=== PATIENT | female | born 1960 | race Caucasian/White ===

== ENCOUNTER 2018-04-22 18:43 | Emergency (ER) | payer OTHER ==
[~2018-04-22] VITALS: Ht 162.6 cm; Wt 79.0 kg
[~2018-04-22 18:43] MED LIST: AMLO-147; BECL8.7A INH; HYDR-3672 PO; HYDR25TA6 PO; LIPITOR PO; LOSARTAN PO; NITR0.4T39 SL
[2018-04-22 18:47] VITALS: BP 147/73; PULSE 78; RESP 18; Ht 162.6 cm; Wt 79.0 kg
[2018-04-22] MEDS ORDERED: ALBUTEROL 0.083% (NEB) 2.5 MG/3 ML AMP HHN STA (21:58)
--- NOTE | 2018-04-22 21:58 | ERD ---
ER Documentation Chief Complaint Chief Complaint cough/body aches/fever x 5 days HPI This is a 58-year-old female who presents emergency department with complaints of cough, chest congestion, chest discomfort for more than 5 days. Stated that she is also asthmatic but her inhaler is not working. Denies headache, dizziness, neck pain, neck stiffness, difficulty fungal difficult breathing lying flat, shoulder pain, abdominal pain, nausea, vomiting, constipation, diarrhea, urinary symptoms, loss of bowel bladder control, trauma, injury, falls, recent travel, recent long travel, recent exposure to any illness, recent antibiotic use in the last 3 months, fever, chills, seizures, numbness or tingling vision, trouble walking, recent major surgery in the last 3 weeks. Past medical history: Hypertension, asthma. Surgical history: Denies. Medication: Unable to obtain. Denies smoking, use of alcoholic beverages, use of illegal drugs. ROS All systems reviewed and are negative except as per history of present illness. Medications Home Meds Active Scripts Acetaminophen* (Tylophen*) 500 Mg Capsule, 1 CAP PO Q6H PRN for PAIN AND OR ELEVATED TEMP, #20 CAP Prov:JSO VELASCO 04/22/18 Benzonatate* (Tessalon Perle*) 100 Mg Capsule, 100 MG PO Q8H PRN for COUGH, #15 CAP Prov:JOS VELASCO 04/22/18 Albuterol Sulfate* (Ventolin HFA*) 18 Gm Hfa.aer.ad, 2 PUFF INHALATION Q4H PRN for WHEEZING, #1 INHALER Prov:JOS VELASCO 04/22/18 Prednisone* (Prednisone*) 20 Mg Tab, 40 MG PO DAILY for 4 Days, TAB Prov:JOS VELASCO 04/22/18 Azithromycin* (Zithromax*) 250 Mg Tablet, 250 MG PO .SophiaPACK DIRECTED, #6 TAB TAKE 500 MG (2 TABS) THE FIRST DAY THEN 250 MG (1 TAB) DAYS 2-5 Prov:JOS VELASCO 04/22/18 Oseltamivir Phosphate* (Tamiflu*) 75 Mg Capsule, 75 MG PO BID for 5 Days, CAP Prov:JOS VELASCO 04/22/18 Reported Medications Beclomethasone Dip* (Qvar 40*) 7.3 Gm Inha, 1 PUFF INH BID, INH 12/01/13 [Losartan] No Conflict Check, 100 MG PO DAILY 12/01/13 Hydrochlorothiazide (Hydrochlorothiazide) 25 Mg Tablet, 25 MG PO DAILY, TAB 12/01/13 Nitroglycerin* (Nitrostat*) 0.4 Mg Tab.subl, 0.4 MG SL Q5MIN PRN for CHEST PAIN, BOTTLE 12/01/13 Hydralazine Hcl* (Hydralazine Hcl*) 50 Mg Tab, 50 MG PO DAILY, TAB 12/01/13 [Lipitor] No Conflict Check, PO 12/01/13 Amlodipine Besylate* (Amlodipine Besylate*) 10 Mg Tablet 12/14/12 Allergies Allergies: Coded Allergies: No Known Allergy (Unverified , 12/14/12) PMhx/Soc Medical and Surgical Hx: pt denies Medical Hx, pt denies Surgical Hx History of Surgery: No Anesthesia Reaction: No Hx Neurological Disorder: No Hx Respiratory Disorders: No Hx Cardiac Disorders: No Hx Psychiatric Problems: No Hx Miscellaneous Medical Probl: No Hx Alcohol Use: No Hx Substance Use: No Hx Tobacco Use: No Smoking Status: Never smoker Physical Exam Vitals Physical Exam Const: No acute distress Head: Atraumatic Eyes: Normal Conjunctiva ENT: Normal External Ears, Nose and Mouth. Bilateral ears: TMs are not erythematous. No bleeding. No discharge with no hearing loss. Nose: Midline. There is no frontal or maxillary sinus tenderness to palpation. Throat: Uvula is midline nondisplaced. Tonsils are +1 bilaterally without redness without exudates. Tolerating secretions. Patent airway. Speaks full and clear sentences. No tripoding. Neck: Full range of motion. No meningismus. No nuchal rigidity. No signs of irritation. Resp: Clear to auscultation bilaterally. Cardio: Regular rate and rhythm, no murmurs Abd: Soft, non tender, non distended. Normal bowel sounds Skin: No petechiae or rashes. No vesicular lesion to chest area. Back: No midline or flank tenderness Ext: No cyanosis, or edema Neur: Awake and alert. No neurological deficits. Psych: Normal Mood and Affect Results 24 hrs Current Medications Medications Dose Sig/Bravo Start Time Status Last (Trade) Ordered Route PRN Stop Time Admin Dose Reason Admin Aspirin 325 mg ONCE ONCE 04/22/18 DC 04/22/18 (Aspirin) PO 22:00 22:42 04/22/18 22:01 Albuterol 5 mg ONCE STAT 04/22/18 DC 04/22/18 (Proventil HHN 21:58 22:25 0.083% (Neb)) 04/22/18 22:01 Ipratropium 0.5 mg ONCE ONCE 04/22/18 DC 04/22/18 [place] HHN 22:00 22:25 (Atrovent 04/22/18 22:01 0.02% (Neb)) Oseltamivir 75 mg ONCE ONCE 04/22/18 DC 04/22/18 Phosphate PO 23:30 23:37 (Tamiflu) 04/22/18 23:31 10 mg ONCE ONCE 04/22/18 DC 04/22/18 Dexamethasone IM 23:30 23:38 (Decadron) 04/22/18 23:31 Procedures/MDM Diagnostic tests: EKG: Normal sinus rhythm with a ventricular rate of 60 bpm. Influenza a and B: Positive for influenza A. Negative for influenza B. Chest x-ray: Mild left lower lobe linear atelectatic changes. Treatment: Albuterol and Atrovent breathing treatment. Tamiflu. Re-evaluation: Denies headache, neck pain, shoulder pain, chest pain. No episode of emesis in the emergency department. No accessory muscle use in breathing. Respirations even and unlabored. Lungs are clear to auscultation. Stated he feels much better examined that she is ready to go home. Differential diagnosis I have low suspicion for acute microinfarction, acute coronary syndrome, sepsis, bronchospasm, status asthmaticus, pneumothorax, hemothorax, severe dehydration. Final diagnosis: Bronchitis. Prescription: Prednisone. Azithromycin. Pro-air. Tamiflu. Tessalon Perles. Follow-up with PCP in the next 24-48 hours. Come back here in the emergency department for any new symptoms or any worsening symptoms. All questions and concerns were answered. Patient and family members verbalized understanding and agreed with plan of care. Hemodynamically stable on discharge. Departure Diagnosis: Primary Impression: Cough Additional Impressions: Influenza A Asthma Condition: Stable Additional Instructions: Follow-up with PCP in the next 24-48 hours. Come back here in the emergency department for any new symptoms or any worsening symptoms. JOS VELASCO Apr 22, 2018 21:58
[2018-04-22] MEDS ORDERED: ASPIRIN 325 MG TAB PO ONE (22:00)
[2018-04-22] MEDS ORDERED: IPRATROPIUM (NEB) 0.5 MG/2.5 ML AMP HHN ONE (22:00)
[2018-04-22] MEDS ORDERED: DEXAMETHASONE 10 MG/ML 1 ML INJ IM ONE (23:30)
[2018-04-22] MEDS ORDERED: OSELTAMIVIR 75 MG CAP PO ONE (23:30)
[2018-04-22] MEDS ORDERED: AZIT250T PO (23:32)
[2018-04-22] MEDS ORDERED: OSEL75CA23 PO (23:32)
[2018-04-22] MEDS ORDERED: PRED20TA PO (23:32)
[2018-04-22] MEDS ORDERED: ALBU18HF INHALATION (23:33)
[2018-04-22] MEDS ORDERED: BENZ-6 PO (23:33)
[2018-04-22] MEDS ORDERED: ACET500C5 PO (23:33)
== END 2018-04-22 23:42 | disposition home or self-care (01) ==
LOC: FTE 18:43
DX: J10.1 Influenza due to other identified influenza virus with other respiratory manifestations (principal); I10 Essential (primary) hypertension; J45.901 Unspecified asthma with (acute) exacerbation
CPT/HCPCS: 71046; 87400; 93005; 94664; 96372; J1100; Z7502; Z7610

== ENCOUNTER 2018-05-02 22:31 | Emergency (ER) | payer OTHER ==
[~2018-05-02] VITALS: Ht 162.6 cm; Wt 82.2 kg
[~2018-05-02 22:31] MED LIST changes: +ACET500C5 PO; +ALBU18HF INHALATION; +AZIT250T PO; +BENZ-6 PO; +OSEL75CA23 PO; +PRED20TA PO
[2018-05-02 22:39] VITALS: Ht 162.6 cm; Wt 82.2 kg
[2018-05-02] MEDS ORDERED: SOD CHLORIDE 0.9% 1,000 ML IV STA (23:46)
[2018-05-02] MEDS ORDERED: KETOROLAC 15 MG INJ IV STA (23:46)
--- NOTE | 2018-05-03 00:52 | ERD ---
ER Documentation Chief Complaint Chief Complaint numbness left side of face x 3 days. no neuro deficit HPI This is a 58-year-old female with a past medical history of hypertension, noncompliant on her losartan due to running out 2 weeks ago, a recent diagnosis of influenza on April 22, 2018 and treated with Tamiflu, who is presenting with multiple complaints. The patient's primary complaint is a tingling sensation and tightness to the left side of the face. It has been ongoing for the last 3 days. She has not had a facial droop. She denies headache or vision changes. She has not had any dysarthria or aphasia. She has not had any other focal deficits. She has not had any weakness or numbness to the rest of the body. The patient has continued to have a cough. She also endorses left mid axillary waxing and waning aching chest soreness, exacerbated by coughing. She denies shortness of breath or diaphoresis or lightheadedness or dizziness or nausea or vomiting. The patient denies current fever or chills. The patient does not endorse neck or back pain. The patient denies abdominal pain. The patient denies changes to bowel movements or urination. The patient has had no focal deficits. The patient has had no weakness or numbness or tingling to the face or extremities. ROS All systems reviewed and are negative except as per history of present illness. Medications Home Meds Active Scripts Acetaminophen* (Tylophen*) 500 Mg Capsule, 1 CAP PO Q6H PRN for PAIN AND OR ELEVATED TEMP, #20 CAP Prov:MAIGILBERTJOS 04/22/18 Benzonatate* (Tessalon Perle*) 100 Mg Capsule, 100 MG PO Q8H PRN for COUGH, #15 CAP Prov:CHRISTODJOS F 04/22/18 Albuterol Sulfate* (Ventolin HFA*) 18 Gm Hfa.aer.ad, 2 PUFF INHALATION Q4H PRN for WHEEZING, #1 INHALER Prov:MAIGILBERTREYMUNDOALETHA Naty 04/22/18 Prednisone* (Prednisone*) 20 Mg Tab, 40 MG PO DAILY for 4 Days, TAB Prov:PASILATODJOS 04/22/18 Azithromycin* (Zithromax*) 250 Mg Tablet, 250 MG PO .ZPACK DIRECTED, #6 TAB TAKE 500 MG (2 TABS) THE FIRST DAY THEN 250 MG (1 TAB) DAYS 2-5 Prov:JOS VELASCO 04/22/18 Oseltamivir Phosphate* (Tamiflu*) 75 Mg Capsule, 75 MG PO BID for 5 Days, CAP Prov:JOS VELASCO 04/22/18 Reported Medications Beclomethasone Dip* (Qvar 40*) 7.3 Gm Inha, 1 PUFF INH BID, INH 12/01/13 [Losartan] No Conflict Check, 100 MG PO DAILY 12/01/13 Hydrochlorothiazide (Hydrochlorothiazide) 25 Mg Tablet, 25 MG PO DAILY, TAB 12/01/13 Nitroglycerin* (Nitrostat*) 0.4 Mg Tab.subl, 0.4 MG SL Q5MIN PRN for CHEST PAIN, BOTTLE 12/01/13 Hydralazine Hcl* (Hydralazine Hcl*) 50 Mg Tab, 50 MG PO DAILY, TAB 12/01/13 [Lipitor] No Conflict Check, PO 12/01/13 Amlodipine Besylate* (Amlodipine Besylate*) 10 Mg Tablet 12/14/12 Allergies Allergies: Coded Allergies: No Known Allergy (Unverified , 12/14/12) PMhx/Soc History of Surgery: No Anesthesia Reaction: No Hx Neurological Disorder: No Hx Respiratory Disorders: Yes (Asthma) Hx Cardiac Disorders: Yes (HTN) Hx Psychiatric Problems: No Hx Miscellaneous Medical Probl: No Hx Alcohol Use: No Hx Substance Use: No Hx Tobacco Use: No Smoking Status: Never smoker FmHx Family History: No diabetes Physical Exam Vitals Vital Signs Date Temp Pulse Resp B/P (MAP) Pulse Ox O2 O2 Flow FiO2 Time Delivery Rate 05/03/18 Nasal 2 00:09 Cannula 05/02/18 98.0 61 18 203/81 96 22:39 (121) Physical Exam Const: No apparent distress, well-developed, well-nourished Head: Normocephalic, Atraumatic Eyes: Normal Conjunctiva. Extraocular movements intact. Pupils equal, round and reactive to light ENT: Normal External Ears, Nose and Mouth. Neck: Full range of motion. No meningismus. Resp: Clear to auscultation bilaterally, No wheezes, rales or rhonchi Cardio: Regular rate and rhythm. No murmurs, rubs or gallops Abd: Soft, non tender, non distended. Normal bowel sounds Skin: No petechiae or rashes Back: No midline tenderness. No CVA tenderness Ext: No cyanosis, or edema Neur: Awake and alert, oriented 4. Cranial nerves intact. Subjective decreased sensation to the left face, but objectively sensation is intact. No facial droop. Normal strength, sensation and coordination. Psych: Normal Mood and Affect Result Diagram: 05/03/18 0003 Results 24 hrs Laboratory Tests Test 05/03/18 00:03 White Blood Count 7.8 10^3/ul Red Blood Count 4.53 10^6/ul Hemoglobin 13.8 g/dl Hematocrit 41.1 % Mean Corpuscular Volume 90.7 fl Mean Corpuscular Hemoglobin 30.5 pg Mean Corpuscular Hemoglobin Concent 33.6 g/dl Red Cell Distribution Width 12.4 % Platelet Count 297 10^3/UL Mean Platelet Volume 10.7 fl Immature Granulocytes % 0.500 % Neutrophils % 49.1 % Lymphocytes % 38.7 % Monocytes % 7.7 % Eosinophils % 3.2 % Basophils % 0.8 % Nucleated Red Blood Cells % 0.0 /100WBC Immature Granulocytes # 0.040 10^3/ul Neutrophils # 3.8 10^3/ul Lymphocytes # 3.0 10^3/ul Monocytes # 0.6 10^3/ul Eosinophils # 0.3 10^3/ul Basophils # 0.1 10^3/ul Nucleated Red Blood Cells # 0.0 10^3/ul Current Medications Medications Dose Sig/Bravo Start Time Status Last (Trade) Ordered Route PRN Stop Time Admin Dose Reason Admin Sodium 1,000 ml @ Q1H STAT 05/02/18 05/03/18 Chloride 1,000 mls/hr IV 23:46 00:12 05/03/18 00:45 Ketorolac 15 mg ONCE STAT 05/02/18 DC 05/03/18 Tromethamine IV 23:46 00:12 (Toradol) 05/02/18 23:47 Procedures/MDM MDM The patient's presentation warrants further investigation. Previous medical records, if available, were reviewed. LABS The patient's laboratory testing was obtained and reviewed. No emergent treatment was required unless described below. CBC: No E/o of systemic infection or severe anemia or thrombocytopenia BMP: No E/o severe acidosis or alkalosis or renal failure or diabetic ketoacidosis Troponin: No E/o acute ischemia EKG EKG read by me: Rate/Rhythm: Sinus bradycardia at 49 bpm. Intervals: Normal [place]: Normal Impression: No evidence of acute ischemia. Sinus bradycardia. IMAGING Imaging and Radiology interpretation reviewed. CXR FINDINGS: Medical devices: None. Mediastinum: Cardiomediastinal contours are normal. Lungs: Lungs are clear. Pleura: Negative for pleural effusion or pneumothorax. Bones: No acute bony abnormality. Additional comment: None. IMPRESSION: Negative for evidence of an acute chest process. Electronically viewed and signed by Ozzie Olsen Physician on 05/03/2018 00:23 TREATMENT/DISPOSITION The patient presents primarily for left facial numbness and tingling. Objectively, the patient does not have any neuro deficits. There is no evidence of facial droop. I have low suspicion for Lucas's palsy. I do not see evidence of any metabolic emergencies. The patient also endorsed left-sided rib pain, exacerbated by coughing. The patient was diagnosed with the flu 1-2 weeks ago. She has had a persistent cough, which I suspect is related to her viral illness. Given that she endorses rib pain, we did complete a cardiac workup. The patient's chest xray does not reveal pneumonia or pneumothorax or pleural effusions or pulmonary edema. She does not have a widened mediastinum and does not have signs or symptoms concerning for thoracic aortic aneurysm or dissection. The patient does not have pneumomediastinum or signs concerning for esophageal tear or rupture. The patient has no clinical or radiographic signs of pericardial effusion or tamponade. The patient does not have pneumoperitoneum and I have decreased suspicion of viscus perforation as possible referred pain. The patient does not have a history of heart failure and I have low suspicion for this. The patient does not have a diagnosis of COPD and is not wheezing today. The patient is not tachypneic or hypoxic. The patient is breathing comfortably and without pleuritic pain. The patient is not on hormonal therapy. The patient has no history of clotting or bleeding disorders. The patient has no calf tenderness. The patient has had no hemoptysis. I have decreased suspicion for PE. The patient's troponin and EKG are reassuring. I have low suspicion for acute coronary syndrome. The patient does have mild bradycardia. This was discussed with the patient. I do not feel the patient requires inpatient workup for this. He is unlikely to be related to today's events. The patient was treated with Toradol and IV fluids in the emergency department. Upon reevaluation of the patient, symptoms have improved. No emergent diagnoses were identified. At this time, I feel that the patient stable for discharge. The patient was instructed to follow-up with a primary care physician in 1-3 days. The patient will be given strict precautions with which to return to the emergency department. Prescriptions: Ibuprofen, Tessalon Perles The patient's blood pressure was elevated at greater than 120/80 while in the emergency department. The patient was otherwise stable with no evidence of hypertensive urgency or emergency. The patient does not require admission for blood pressure control. I have discussed with the patient the risks of hypertension. I have instructed the patient to return to the ER for any new or w orsening symptoms including chest pain, shortness of breath, headache, blurred vision, confusion, nausea, vomiting or LOC. I have advised the patient to follow up with the primary care physician for outpatient monitoring and treatment for hypertension in 1-3 days. Disclaimer: Inadvertent spelling and grammatical errors are likely due to EHR/dictation software use and do not reflect on the overall quality of patient care. Note that the electronic time recorded on this note does not necessarily r eflect the actual time of the patient encounter. Departure Diagnosis: Primary Impression: Paresthesia Additional Impressions: Nonspecific chest pain Chest wall pain Bradycardia Condition: Stable MATILDE CERDA MD May 03, 2018 00:51
[2018-05-03] MEDS ORDERED: IBUP-1542 PO (00:58)
[2018-05-03] MEDS ORDERED: BENZ-6 PO (00:58)
[2018-05-03 02:05] VITALS: BP 151/77; PULSE 48; RESP 18
== END 2018-05-03 02:30 | disposition home or self-care (01) ==
LOC: E/R 22:31
DX: R20.2 Paresthesia of skin (principal); R00.1 Bradycardia, unspecified; R07.9 Chest pain, unspecified; I10 Essential (primary) hypertension; J45.909 Unspecified asthma, uncomplicated
CPT/HCPCS: 36415; 71045; 80048; 84484; 85025; 93005; 96374; J1885; J7030; Z7502

== ENCOUNTER 2019-01-13 21:07 | Emergency (ER) | payer OTHER ==
[~2019-01-13] VITALS: Ht 160 cm; Wt 77.5 kg
[~2019-01-13 21:07] MED LIST changes: -ACET500C5 PO; -ALBU18HF INHALATION; -AMLO-147; +AMOX500C2 PO; -AZIT250T PO; -BECL8.7A INH; -BENZ-6 PO; +DULO60CA60 PO; +ERGO500013 PO; +GABA300C16 PO; -HYDR-3672 PO; +IBUP-1542 PO; +LATA2.5D2 BOTH EYES; -LIPITOR PO; +LOSA100T15 PO; -LOSARTAN PO; +NIFE90TA11 PO; -NITR0.4T39 SL; -OSEL75CA23 PO; -PRED20TA PO
[2019-01-13 21:34] VITALS: Ht 160 cm; Wt 77.5 kg
[2019-01-13] MEDS ORDERED: ONDANSETRON (ODT) 4 MG TAB ODT STA (23:56)
[2019-01-14] MEDS ORDERED: HYDROCODONE/APAP (10/325) TAB PO ONE
[2019-01-14 03:10] VITALS: BP 130/69; PULSE 51; RESP 14
== END 2019-01-14 03:25 | disposition home or self-care (01) ==
LOC: E/R 21:07
DX: J01.80 Other acute sinusitis (principal); I10 Essential (primary) hypertension; J45.909 Unspecified asthma, uncomplicated; R40.2142 Coma scale, eyes open, spontaneous, at arrival to emergency department; R40.2362 Coma scale, best motor response, obeys commands, at arrival to emergency department; R40.2252 Coma scale, best verbal response, oriented, at arrival to emergency department
CPT/HCPCS: 70450; Z7502; Z7610